=== PATIENT | female | born 1990 | race Caucasian/White ===

== ENCOUNTER 2016-09-09 23:58 | Emergency (ER) | payer OTHER ==
[~2016-09-09] VITALS: Ht 167.6 cm; Wt 71.1 kg
[~2016-09-09 23:58] MED LIST: DOCUSATE SODIU100 MG PO; ENDOCET 5-3251 EACH PO; IBUPROFEN800 MG PO; KEFLEX500 MG PO; NOHOMEMEDS; VITAFOL-OB+DHA1 EACH PO
[2016-09-10 01:27] LABS: D-DIMER ELISA 0.16 mg/L FEU (< 0.57)
[2016-09-10 02:06] VITALS: BP 128/70
== END 2016-09-10 02:06 | disposition home or self-care (01) ==
LOC: EME 23:58 → RME 23:58
PROVIDERS: Physician Assistant Medical
DX: R07.9 Chest pain, unspecified (principal); R06.02 Shortness of breath; F17.200 Nicotine dependence, unspecified, uncomplicated
CPT/HCPCS: 71020; 85379; 93005; 99281; 99284; Q0177